=== PATIENT | female | born 1985 | race Caucasian/White ===

== ENCOUNTER → 2016-07-12 | Outpatient (CLI) | payer MEDICAID ==
--- NOTE | 2016-07-12 16:11 | Diagnostic Imaging Report ---
INDICATION: survey. COMPARISON: None. DISCUSSION: Transabdominal sonographic evaluation of the gravid uterus was performed. Single live intrauterine at 20 weeks 3 days by sonographic measurements. EDC is 11/26/2016. presentation is transverse. Normal amniotic fluid index. Grade 1 placenta is located posteriorly with no placenta previa. heart rate measures 136 beats per minute. gender is female. Good visualization of the kidneys, bladder, stomach, brain, four-chamber heart, three-vessel cord and insertion, spine, and extremities. The estimated weight is 374 g. Biparietal diameter measures 4.5 cm. Head circumference measures 17 cm. The abdominal circumference measures 16 cm. Femur length measures 3.4 cm. IMPRESSION: 1. Single live intrauterine at 20 weeks 3 days by sonographic measurements. Normal anatomical survey. Dictated by: Dictated on workstation # [id number]
== END ==
LOC: RAD 13:14
PROVIDERS: ATTEND Obstetrics & Gynecology
DX: Z34.82 Encounter for supervision of other normal pregnancy, second trimester (principal)
CPT/HCPCS: 76816

== ENCOUNTER 2016-11-15 08:36 | Outpatient (CLI) | payer MEDICAID ==
[~2016-11-15] VITALS: Ht 152.4 cm; Wt 67.6 kg
[2016-11-15] MEDS ORDERED: FAMO20TA5 PO (08:45)
[2016-11-15] MEDS ORDERED: PREN-37 PO (08:45)
[2016-11-15 08:53] VITALS: BP 105/65
== END 2016-11-15 09:00 | disposition home or self-care (01) ==
LOC: PREOP 08:36
PROVIDERS: ATTEND Obstetrics & Gynecology
DX: Z01.818 Encounter for other preprocedural examination (principal); O34.219 Maternal care for unspecified type scar from previous cesarean delivery; Z3A.00 Weeks of gestation of pregnancy not specified
CPT/HCPCS: 87081

== ENCOUNTER 2016-11-22 04:58 | Inpatient (IN) | payer MEDICAID ==
[~2016-11-22] VITALS: Ht 152.4 cm; Wt 69.2 kg
[2016-11-22] VITALS (10 sets, daily range): BP systolic 79–122; BP diastolic 47–77
[~2016-11-22 04:58] MED LIST: FAMO20TA5 PO; PREN-37 PO
[2016-11-22] MEDS ORDERED: NS (IVPB) 50 ML ONE (05:05)
[2016-11-22] MEDS ORDERED: LACTATED RINGERS 1,000 ML IV ONE ×2 (05:05→09:04)
[2016-11-22] MEDS ORDERED: ceFAZolin 1,000 MG (ANCEF) VIAL ONE (05:05)
[2016-11-22] MEDS ORDERED: METOCLOPRAMIDE INJ 10 MG/2 ML (REGLAN) ONE (05:33)
[2016-11-22] MEDS ORDERED: FAMOTIDINE 20MG/2ML IV (PEPCID) ONE (05:34)
[2016-11-22] MEDS ORDERED: CITRIC ACID/SOB CIT (BICITRA) 30 ML UDC ONE (05:34)
--- OUTSIDE RECORDS SUMMARY | 2016-11-22 05:50 | XMS REPORT ---
Author Author [facility] Medical Staff Organization [facility] Address [address] [place] [address] Phone [phone] Care Team Providers Care Copy Worker Name Role Phone SANDY MONROY MD PP [phone] Summary purpose TRANSITION OF CARE AUTO GENERATION Chief Complaint and Reason for Visit No authorized Reason for Visit (Admitting Diagnosis) is available for this visit. Problem list No authorized problems tracked for continuity of care are available for this visit. Encounters No authorized problems tracked for encounter diagnoses are available for this visit. Medications No medications recorded for this patient visit Allergies, adverse reactions, alerts Allergen Category Ingredient Status Reaction Severity Onset No known food allergies No known food allergies No known food allergies Confirmed or Verified Codeine Drug Allergy Codeine Confirmed but Inactive Latex Drug Allergy Latex Confirmed but Inactive Latex Environmental Allergy LATEX Confirmed but Inactive Penicillins Drug Allergy Penicillins Confirmed but Inactive Immunizations No immunizations recorded for this patient visit Relevant diagnostic tests and/or laboratory data No authorized results are available for this patient visit History of procedures Procedure Code Code Type Description Date Performed Performing Physician 17163 CPT-4 EMERGENCY DEPT VISIT 09-09-2015 KADIE DUMONT 98271 CPT-4 EMERGENCY DEPT VISIT 09-09-2015 KADIE DUMONT Functional status Functional Status Finding Observation Time Abdomen Appearance flat :35 Abdomen soft :35 Carroll no :35 Urination normal :35 Quality sym/unlabored :35 Cough absent :35 Secretions no :35 Airway natural :35 Chest Tube no :35 Oxygen no :55 Temp >100.4 no :55 Temp <96.8 no :55 Chills with rigors no :55 HR > 90bpm no :55 Respirations > 20 no :55 Systolic <90 no :55 headache stiff neck no :55 Nursing Note DC inst given to pt with Rx for Ultravate. Verb understanding of inst and pt amb off unit in stable condition. :55 Vital signs Type Value Date Respiration Rate 18breaths per minute :55 Pulse 75beats per minute :55 Oxygen Saturation 99% :55 BP Systolic 95mmHg :55 BP Diastolic 62mmHg :55 Temperature 98.6F :55 Height 60inches :50 Weight 115.0LB :50 Social history Type Value Smoking Status CURRENT EVERY DAY SMOKER Treatment Plan No treatment plan text is available for this visit. Hospital discharge instructions Dismissal Condition good Disposition on DC home DC Inst/Educ Give yes Med/Side Effects Rev yes Flu Vac No Tetanus Vac 12-08-08
--- OUTSIDE RECORDS SUMMARY | 2016-11-22 05:50 | XMS REPORT ---
Author Author [facility] Medical Staff Organization [facility] Address [address] [place], [place] [id number] Phone [phone] Care Team Providers Care Automotive Internet Sales Manager Name Role Phone SANDY MONROY MD PP [phone] Summary purpose TRANSITION OF CARE AUTO GENERATION [...] for this patient visit History of procedures No procedures recorded for this patient visit. Functional status Functional Status Finding Observation Time [...]
[2016-11-22] MEDS ORDERED: FAMOTIDINE 20MG/2ML IV (PEPCID) IV ONE (06:00)
[2016-11-22] MEDS ORDERED: CITRIC ACID/SOB CIT (BICITRA) 30 ML UDC PO ONE (06:00)
[2016-11-22] MEDS ORDERED: METOCLOPRAMIDE INJ 10 MG/2 ML (REGLAN) IV ONE (06:00)
[2016-11-22] MEDS ORDERED: OXYTOCIN/NORMAL SALINE 1,000 ML IV ONE (06:30)
[2016-11-22] MEDS ORDERED: ceFAZolin INJECTION 1,000 MG in NS (IVPB) 50 ML IV SCH (06:30)
[2016-11-22] MEDS: LACTATED RINGERS 1,000 ML IV PRN ×2 (06:34→07:19)
[2016-11-22 06:41] LABS: BASOPHILS # (AUTO) 0.1 10^3/uL (0.0-0.1); BASOPHILS % (AUTO) 0 % (0-10); EOSINOPHILS # (AUTO) 0.4 10^3/uL (0.0-0.3); EOSINOPHILS % (AUTO) 2 % (0-10); LYMPHOCYTES # (AUTO) 3.1 X 10^3 (1.0-4.0); LYMPHOCYTES % (AUTO) 18 % (12-44); MEAN CORPUSCULAR HEMOGLOBIN 29 PG (25-34); MEAN CORPUSCULAR HGB CONC 33 G/DL (32-36); MEAN CORPUSCULAR VOLUME 89 FL (80-99); MEAN PLATELET VOLUME 9.5 FL (7.4-10.4); MONOCYTES # (AUTO) 1.6 X 10^3 (0.0-1.0); MONOCYTES % (AUTO) 10 % (0-12); NEUTROPHILS # (AUTO) 11.8 X 10^3 (1.8-7.8); NEUTROPHILS % (AUTO) 70 % (42-75); PLATELET COUNT 387 10^3/uL (130-400); RED CELL DISTRIBUTION WIDTH 14.6 % (10.0-14.5); WHITE BLOOD COUNT 16.9 10^3/uL (4.3-11.0)
[2016-11-22] MEDS ORDERED: fentaNYL INJECTION 100 MCG/2 ML AMP ONE (06:54)
[2016-11-22] MEDS ORDERED: morphine PF (DURAMORPH) 10 MG/10 ML AMP ONE (06:54)
--- NOTE | 2016-11-22 07:20 | History & Physical-OB ---
OB - Chief Complaint & HPI Date/Time Date of Admission: Date of Admission: Nov 22, 2016 at 05:46 Time Seen by Provider: 07:10 Chief Complaint/History OB-Reason for Admission/Chief: Section Hx : 4 Hx Para: 2 Expected Date of Delivery: Nov 28, 2016 Gestational Age in Weeks: 39 Gestational Age in Days: 1 Indication for : desires repeat Admission Nurse Assessment Rev: Yes History of Labs O pos Antibody neg RI RPR NR HBsAg NR HIV NR GC neg GBS neg Allergies and Home Medications Allergies Coded Allergies: No Known Drug Allergies (Unverified , 11/22/16) Home Medications Famotidine 20 Mg Tablet, 20 MG PO DAILY PRN for HEARTBURN, (Reported) Vit/Iron Fumarate/FA 1 Each Tablet, 1 EACH PO DAILY, (Reported) OB - History Hx of Present Care: Yes Ultrasounds: Normal mid trimester US Obstetrical Complications: None Medical Complications: None Patient Past Medical History n/a Social History/Family History Recent Infectious Disease Expo: No Alcohol Use: Denies Use Recreational Drug Use: No OB - Admission Exam Physical Exam Date Seen by Provider: Nov 22, 2016 Time Seen by Provider: 07:10 Vitals: Vital Signs 11/22/16 06:35 Temp 97.7 Pulse 87 Resp 18 B/P (MAP) 122/77 HEENT: NCAT Heart: Rhythm Normal Lungs: Clear Abdomen: Gravid Extremities: Normal Reflexes: Normal Membranes: Intact Heart Rate: 130's Accelerations: Accelerations Present Decelerations: No Decelerations Short Term Variability: Present Residential Variability: Average (6-25) Contractions on Admission: 6-10 Minutes Apart Intensity: Mild Labs Laboratory Tests Test 11/22/16 06:22 Range/Units White Blood Count 16.9 H 4.3-11.0 10^3/uL Red Blood Count 4.10 L 4.35-5.85 10^6/uL Hemoglobin 11.9 11.5-16.0 G/DL Hematocrit 36 35-52 % Mean Corpuscular Volume 89 80-99 FL Mean Corpuscular Hemoglobin 29 25-34 PG Mean Corpuscular Hemoglobin Concent 33 32-36 G/DL Red Cell Distribution Width 14.6 H 10.0-14.5 % Platelet Count 387 130-400 10^3/uL Mean Platelet Volume 9.5 7.4-10.4 FL Neutrophils (%) (Auto) 70 42-75 % Lymphocytes (%) (Auto) 18 12-44 % Monocytes (%) (Auto) 10 0-12 % Eosinophils (%) (Auto) 2 0-10 % Basophils (%) (Auto) 0 0-10 % Neutrophils # (Auto) 11.8 H 1.8-7.8 X 10^3 Lymphocytes # (Auto) 3.1 1.0-4.0 X 10^3 Monocytes # (Auto) 1.6 H 0.0-1.0 X 10^3 Eosinophils # (Auto) 0.4 H 0.0-0.3 10^3/uL Basophils # (Auto) 0.1 0.0-0.1 10^3/uL OB - Assessment/Plan/Diagnosis Assessment Assessment: section Plan Plan: Section Discharge Diagnosis Diagnosis: 31 yo @ 39.1 Previous GBS neg TERRY SAXENA DO Nov 22, 2016 07:20
[2016-11-22] MEDS ORDERED: OXYTOCIN/NORMAL SALINE 500 ML IV SCH (07:25)
[2016-11-22] MEDS ORDERED: HYDROmorphone (DILAUDID) 2 MG/ML VIAL IVP PRN (07:30)
[2016-11-22] MEDS ORDERED: TETANUS,DIPTH,PERTUSS P/F (BOOSTRIX) 0.5 ML VIAL IM SCH (07:30)
[2016-11-22] MEDS ORDERED: ONDANSETRON 4 MG/2 ML (SDV) Z0FRAN IVP PRN (07:30)
[2016-11-22] MEDS ORDERED: MEASLES,MUMPS,RUBELLA 1 EA INJ SC SCH (07:30)
[2016-11-22] MEDS ORDERED: PHENYLEPHRINE 100 MCG/ML 10 ML (ANESTHESIA) SYR ONE (07:51)
[2016-11-22] MEDS ORDERED: GLYCOPYRROLATE 0.2 MG/ML (ROBINUL) 2 ML VIAL ONE (07:51)
[2016-11-22] MEDS ORDERED: fentaNYL INJECTION 100 MCG/2 ML AMP INJ ONE (08:45)
[2016-11-22] MEDS ORDERED: morphine PF (DURAMORPH) 10 MG/10 ML AMP INJ ONE (08:45)
[2016-11-22] MEDS ORDERED: NALOXONE 0.4 MG/ML 1 ML (NARCAN) VIAL IV PRN (08:45)
[2016-11-22] MEDS ORDERED: ONDANSETRON 4 MG/2 ML (SDV) Z0FRAN IV PRN (08:45)
--- NOTE | 2016-11-22 09:02 | Progress Note-Post Operative ---
Post-Operative Progess Note Surgeon (s)/Veterinary Physiologist (s) Surgeon TERRY SAXENA DO Veterinary Physiologist: Leslie Mock Pre-Operative Diagnosis Previous x 2 Post-Operative Diagnosis same Procedure & Operative Findings Date of Procedure 11/22/16 Procedure Performed/Findings Fluid: 1800 EBL 800 Urine: 150 mL clear Findings: Live female weight 8lbs 12 oz, APGARs 4/8 OPERATIVE REPORT IN DETAIL: Once in the operating room, spinal anesthesia was found to be adequate. She was placed in the supine position with a leftward tilt, prepped and draped in normal sterile fashion. A timeout is performed and anesthesia is tested. I then proceed with making a Pfannenstiel skin incision to the previously existing scar using a knife and carried down to the underlying fascia using Bovie cautery. The fascial incision is extended laterally using Bovie cautery. The superior aspect of the fascial incision was then grasped with Hayden clamps, tented upward and dissected off the underlying rectus muscles. During this dissection there is severe scarring of the rectus muscle to the fascia, it is difficult to separate the two layers as the muscle layer is nearly obliterated. Inferior aspect of the fascial incision was then grasped with Hayden clamps, tented upward and dissected off the underlying rectus muscles as best as I can. The rectus muscles were then dissected down the midline using Sagastume scissors, which exposed the peritoneum and allows me to enter bluntly. I then extend the peritoneal incision using blunt traction, placing Bashir ring retractor in the peritoneal incision which offers excellent lateral sidewall retraction. I then identified the lower uterine segment which was found to be thinned out and make an incision into the vesicouterine peritoneum and bluntly dissected a bladder flap off of the lower uterine segment. I then proceed with my myotomy until membranes are visualized. At which point, I extend the uterine incision laterally and superiorly using bandage scissors. I then performed amniotomy using an Allis clamp. Clear fluid was noted. The infant is found in vertex presentation. With gentle fundal pressure, the infant's head is elevated and delivered through the incision and then the nares and oropharynx are then bulb suctioned. The anterior and posterior shoulders are delivered. The infant is then brought out into the operative field where the cord was doubly clamped and cut. Infant was handed off to the awaiting nurses in attendance. Cord blood was collected and 3-vessel cord with intact placenta is delivered spontaneously thereafter. IV Pitocin is initiated to facilitate uterine contraction. Uterine fundus became firmer with bimanual massage. The uterus was then exteriorized and cleared of all endometrial clots and debris. I then closed the uterine incision using 0 Vicryl suture in running locking fashion. A 2nd layer of imbricating 0 Monocryl was placed. Excellent hemostasis was noted after doing so. I then placed the uterus back within the pelvis and copiously irrigated the pelvis using normal saline. There was no active bleeding noted from any of my dissection planes. I placed Interceed antiadhesive over my lower transverse incision and proceeded with closing the peritoneum using 3-0 Vicryl in running fashion. The rectus muscle was reapproximated using 3-0 Vicryl sutures in interrupted fashion. The fascia was reapproximated using 0 Vicryl fashion. The subcutaneous tissues reapproximated using 3-0 plain in an interrupted fashion and the skin was reapproximated using 4-0 Monocryl in a running subcuticular. Dermabond was applied to the incision. A sterile dressing is adhesive white tape. The patient tolerated the procedure well and was sent to the recovery area in stable condition. Lap and sponge counts correct at the end of the procedure. Instrument counts were correct as well. One gram of Ancef was given preoperatively for infection prophylaxis. Anesthesia Type spinal Estimated Blood Loss Estimated blood loss (mL): 800 Specimens/Packing Specimens Removed placenta TERRY SAXENA DO Nov 22, 2016 9:02 am
[2016-11-22] MEDS ORDERED: IBUP-1773 PO (09:09)
[2016-11-22] MEDS ORDERED: DOCU100C37 PO (09:09)
[2016-11-22] MEDS ORDERED: HYDR-3812 PO (09:09)
--- NOTE | 2016-11-22 09:10 | Discharge Inst-Women's Service ---
Discharge Inst-Women's Serv Depart Medication/Instructions New, Converted or Re-Newed RX: RX on Chart Consults/Follow Up Additional Follow Up: Yes Orders/Referrals Dr. Clifton in 7-10 days and in 6 weeks Activity Activity: Activity as Tolerated Driving Instructions: No Driving for 1 Week NO SMOKING: NO SMOKING Nothing Inside Vagina: No Douching, No [place], No Tampons Diet Discharge Diet: No Restrictions Symptoms to Report to : Bleeding Excessive, Pain Increased, Fever Over 101 Degrees F, Vaginal Bleeding Increase, Questions/Concerns For Any Problems or Questions: Contact Your Physician Skin/Wound Care Infection Signs and Symptoms: Increased Redness, Foul Odor of Wound, Increased Drainage, Skin Itchy or Has a Rash, Increased Swelling, Temperature Above 101 F Operative Area Clean and Dry: Keep Incision Clean/Dry Stitches/Renetta/Dermabond: Dermabond, Care of Stitches Bathing Instructions: TERRY Polk DO Nov 22, 2016 9:10 am
[2016-11-22] MEDS: HYDROcodone/APAP 5 MG/325 MG (LORTAB) TAB PO PRN ×3 (10:11→20:03)
[2016-11-22] MEDS ORDERED: D5 LR IV SOLUTION 1,000 ML IV ONE (14:00)
[2016-11-22] MEDS: KETOROLAC 30 MG/ML VIAL IVP SCH ×3 (14:55→20:45)
[2016-11-22] MEDS: CATHETER FLUSH 10 ML SYR IV SCH ×2 (16:11→16:12)
[2016-11-22] MEDS: DOCUSATE SODIUM 100 MG (COLACE) CAP PO SCH ×2 (16:12→20:45)
[2016-11-23 00:23] VITALS: BP 79/48
[2016-11-23] MEDS: IBUPROFEN 600 MG (MOTRIN) TAB PO SCH ×3 (04:55→18:56)
[2016-11-23 05:00] VITALS: BP 92/50
[2016-11-23 06:40] LABS: BASOPHILS % (AUTO) 0 % (0-10); EOSINOPHILS # (AUTO) 0.2 10^3/uL (0.0-0.3); EOSINOPHILS % (AUTO) 2 % (0-10); LYMPHOCYTES # (AUTO) 1.9 X 10^3 (1.0-4.0); LYMPHOCYTES % (AUTO) 13 % (12-44); MEAN CORPUSCULAR HEMOGLOBIN 29 PG (25-34); MEAN CORPUSCULAR HGB CONC 33 G/DL (32-36); MEAN CORPUSCULAR VOLUME 89 FL (80-99); MEAN PLATELET VOLUME 9.3 FL (7.4-10.4); MONOCYTES # (AUTO) 1.7 X 10^3 (0.0-1.0); MONOCYTES % (AUTO) 12 % (0-12); NEUTROPHILS # (AUTO) 10.1 X 10^3 (1.8-7.8); NEUTROPHILS % (AUTO) 73 % (42-75); PLATELET COUNT 336 10^3/uL (130-400); RED BLOOD COUNT 3.31 10^6/uL (4.35-5.85); RED CELL DISTRIBUTION WIDTH 14.1 % (10.0-14.5); WHITE BLOOD COUNT 13.9 10^3/uL (4.3-11.0)
[2016-11-23] MEDS: CATHETER FLUSH 10 ML SYR IV SCH ×3 (08:05→08:06)
[2016-11-23 08:51] VITALS: BP 86/51
[2016-11-23] MEDS: DOCUSATE SODIUM 100 MG (COLACE) CAP PO SCH (08:52)
[2016-11-23] MEDS: HYDROcodone/APAP 5 MG/325 MG (LORTAB) TAB PO PRN ×3 (09:09→18:54)
--- NOTE | 2016-11-23 11:37 | Progress Note-Standard ---
Standard Progress Note Progress Notes/Assess & Plan Date Seen by Provider: Nov 23, 2016 Time Seen by Provider: 11:00 Progress/Assessment & Plan Patient doing well no concerns voiced. Lochia light, pain well controlled. Ambulating and voiding freely. Vital Sign - Last 24 Hours 11/22/16 11/22/16 11/22/16 11/22/16 12:00 13:30 16:00 17:50 Temp 96.0 96.2 96.4 Pulse 89 88 73 63 Resp 16 16 18 B/P (MAP) 100/60 102/58 90/53 79/47 Pulse Ox 98 98 98 O2 Delivery Room Air Room Air Room Air 11/22/16 11/22/16 11/23/16 11/23/16 17:55 20:50 00:23 05:00 Temp 97.4 97.1 96.5 Pulse 59 56 58 75 Resp 18 18 18 B/P (MAP) 87/47 88/56 79/48 92/50 Pulse Ox 100 98 O2 Delivery Room Air Room Air Room Air 11/23/16 08:51 Temp 96.9 Pulse 71 Resp 14 B/P (MAP) 86/51 Pulse Ox 99 O2 Delivery Room Air Incision: c/d/i Laboratory Tests Test 11/23/16 06:28 Range/Units White Blood Count 13.9 H 4.3-11.0 10^3/uL Red Blood Count 3.31 L 4.35-5.85 10^6/uL Hemoglobin 9.6 L 11.5-16.0 G/DL Hematocrit 30 L 35-52 % Mean Corpuscular Volume 89 80-99 FL Mean Corpuscular Hemoglobin 29 25-34 PG Mean Corpuscular Hemoglobin Concent 33 32-36 G/DL Red Cell Distribution Width 14.1 10.0-14.5 % Platelet Count 336 130-400 10^3/uL Mean Platelet Volume 9.3 7.4-10.4 FL Neutrophils (%) (Auto) 73 42-75 % Lymphocytes (%) (Auto) 13 12-44 % Monocytes (%) (Auto) 12 0-12 % Eosinophils (%) (Auto) 2 0-10 % Basophils (%) (Auto) 0 0-10 % Neutrophils # (Auto) 10.1 H 1.8-7.8 X 10^3 Lymphocytes # (Auto) 1.9 1.0-4.0 X 10^3 Monocytes # (Auto) 1.7 H 0.0-1.0 X 10^3 Eosinophils # (Auto) 0.2 0.0-0.3 10^3/uL Basophils # (Auto) 0.0 0.0-0.1 10^3/uL Diagnosis: POD 1 RLTCS Acute blood loss anemia P: Replace Iron PO/PP precautions reviewed Encourage ambulation Anticipate dc tomorrow TERRY SAXENA DO Nov 23, 2016 11:37 am
[2016-11-23 12:57] VITALS: BP 97/48
--- NOTE | 2016-11-23 14:56 | Anesthesia-Regional Post-Op ---
Regional Patient Condition Mental Status: Alert, Oriented x3 Circulation: Same as Pre-Op Headache: Absent Sensation: Full Recovery Motor Block: Absent Post Op Complications Complications None Follow Up Care/Instructions Patient Instructions None needed. Anesthesia/Patient Condition Patient is doing well, no complaints, stable vital signs, no apparent adverse anesthesia problems. ASHWINI VEGA DO Nov 23, 2016 14:56
[2016-11-23 19:50] VITALS: BP 86/49
[2016-11-24 02:00] VITALS: BP 88/51
[2016-11-24] MEDS: IBUPROFEN 600 MG (MOTRIN) TAB PO SCH ×2 (02:08→08:36)
[2016-11-24] MEDS: DOCUSATE SODIUM 100 MG (COLACE) CAP PO SCH ×2 (02:08→08:36)
[2016-11-24] MEDS: HYDROcodone/APAP 5 MG/325 MG (LORTAB) TAB PO PRN ×2 (06:02→12:29)
[2016-11-24 08:40] VITALS: BP 97/55
--- NOTE | 2016-11-24 09:02 | Progress Note-Standard ---
Standard Progress Note Progress Notes/Assess & Plan Date Seen by Provider: Nov 24, 2016 Time Seen by Provider: 09:02 Progress/Assessment & Plan patient is without complaint. She is ambulating, voiding, tolerating by mouth well, has good pain control. Patient is requesting discharge home. Vital Signs Date Time Temp Pulse Resp B/P (MAP) Pulse Ox O2 Delivery O2 Flow Rate FiO2 11/24/16 08:40 97.8 80 18 97/55 99 11/24/16 02:00 98.5 81 18 88/51 99 11/23/16 19:50 98.1 62 18 86/49 99 11/23/16 12:57 98.7 71 16 97/48 100 Room Air vital signs are stable. Patient is afebrile. Abdomen is benign. Extremities show no clubbing cyanosis. There is no Homans sign. Assessment and plan postoperative day number 2 status post repeat doing well. patient is discharged home with follow-up in clinic Final Diagnosis repeat delivery STEFANIA HAGAN MD Nov 24, 2016 9:02 am
== END 2016-11-24 13:01 | disposition home or self-care (01) | DRG 766 ==
LOC: LDRP 05:46 → WS 09:25
PROVIDERS: ADMIT Obstetrics & Gynecology; ATTEND Obstetrics & Gynecology
PROC: 10D00Z1 Extraction of Products of Conception, Low, Open Approach (ICD-10-PCS; principal; 2016-11-22 07:19)
DX: O34.211 Maternal care for low transverse scar from previous cesarean delivery (principal); Z37.0 Single live birth; Z3A.39 39 weeks gestation of pregnancy
CPT/HCPCS: 36415; 85025; 86850; 86900; 86901; 94664

== ENCOUNTER 2020-05-18 11:48 | Emergency (ER) | payer MEDICAID, OTHER ==
[~2020-05-18] VITALS: Ht 152 cm; Wt 58.9 kg
[~2020-05-18 11:48] MED LIST changes: +ACHD5005 PO; +DOCU100C37 PO; +IBUP-1773 PO
--- NOTE | 2020-05-18 12:11 | ED Back Pain ---
General Stated Complaint: LOWER BACK PAIN Source of Information: Patient Exam Limitations: No Limitations History of Present Illness Date Seen by Provider: May 18, 2020 Time Seen by Provider: 12:11 Initial Comments This is a healthy 34 yo female who presented via POV for low back pain. State she was attempting to put on a patients prosthetic leg and injured her lower back. Reports immediate severe pain in ther left lower back. Rates 7/10, sharp, and localized to left lower back. Reported some numbness in her left upper thigh initially, however notes this is improving. Pain is worse with ambulation and improved with rest. Took Ibuprofen and Tylenol prior to arrival. No other injuries reported. No recent illness. Denies fever, chills, loss of sensation in groin, or bowel/bladder changes. Timing/Duration: 1/2 Hour Severity: Moderate Pain/Injury Location: Back Modifying Factors: Worse With Movement; Improves With Rest Associated Symptoms: numbness in legs/feet (see HPI) Allergies and Home Medications Allergies Coded Allergies: No Known Drug Allergies (Unverified , 11/22/16) Home Medications Cyclobenzaprine HCl 10 Mg Tablet, 10 MG PO Q8H PRN for SPASMS Prescribed by: ANTONIO JEROME on 05/18/20 1247 Docusate Sodium 100 Mg Capsule, 100 MG PO BID PRN for CONSTIPATION-1ST LINE Prescribed by: TERRY SAXENA on 11/22/16 09 Famotidine 20 Mg Tablet, 20 MG PO DAILY PRN for HEARTBURN, (Reported) Hydrocodone Bit/Acetaminophen 1 Each Tablet, 1-2 TAB PO Q4H PRN for PAIN- MODERATE Prescribed by: TERRY SAXENA on 11/22/16 09 Ibuprofen 600 Mg Tablet, 600 MG PO Q6H Prescribed by: TERRY SAXENA on 11/22/16 0909 Vit/Iron Fumarate/FA 1 Each Tablet, 1 EACH PO DAILY, (Reported) Patient Home Medication List Home Medication List Reviewed: Yes Review of Systems Constitutional: no symptoms reported EENTM: no symptoms reported Respiratory: no symptoms reported Cardiovascular: no symptoms reported Gastrointestinal: no symptoms reported Genitourinary: no symptoms reported : No Musculoskeletal: see HPI Skin: no symptoms reported Psychiatric/Neurological: No Symptoms Reported Past [id number]-[id number] Hx Patient Social History Former Smoker, Quit: Apr 01, 2016 Recent Hopitalizations: No Seasonal Allergies Seasonal Allergies: Yes Past Medical History Surgeries: Yes (c/s x2, D&C x2, wisdom teeth) Respiratory: No Cardiac: No Neurological: No Genitourinary: No Gastrointestinal: No Musculoskeletal: No Endocrine: No HEENT: No (glasses) Cancer: No Psychosocial: No Integumentary: No Blood Disorders: No Family Medical History Alcoholism 19 FATHER Hypertension 19 FATHER Respiratory disorder 19 MOTHER Seizure disorder 19 FATHER Physical Exam Vital Signs Vital Signs - First Documented 05/18/20 12:22 Temp 36.0 Pulse 70 Resp 18 B/P (MAP) 112/79 (90) Pulse Ox 98 Capillary Refill : Height, Weight, BMI Height: 5'0.00" Weight: 152lbs. 8.0oz. 69.010923wr; 29.8 BMI Method: General Appearance: No Apparent Distress, WD/WN HEENT: PERRL/EOMI, Normal ENT Inspection Neck: Full Range of Motion, Normal Inspection, Non Tender, Supple Cardiovascular: Regular Rate, Rhythm, No Edema, No Murmur, Normal Peripheral Pulses Respiratory: Lungs Clear, Normal Breath Sounds Gastrointestinal: Normal Bowel Sounds, Non Tender, Soft Back: Normal Inspection, No Vertebral Tenderness, Other (Tenderness over left SI joint with light and deep palpation. ) Extremity: Normal Capillary Refill, Normal Inspection, Normal Range of Motion Neurologic/Psychiatric: Alert, Oriented x3, No Motor/Sensory Deficits, Abnormal Gait (guarded); No Motor Weakness, No Sensory Deficit Skin: Normal Color Progress/Results/Core Measures Results/Orders Lab Results Laboratory Tests Test 05/18/20 12:19 Range/Units Urine Color YELLOW Urine Clarity CLEAR Urine pH 8.0 5-9 Urine Specific [place] 1.010 L 1.016-1.022 Urine Protein NEGATIVE NEGATIVE Urine Glucose (UA) NEGATIVE NEGATIVE Urine Ketones NEGATIVE NEGATIVE Urine Nitrite NEGATIVE NEGATIVE Urine Bilirubin NEGATIVE NEGATIVE Urine Urobilinogen 0.2 < = 1.0 MG/DL Urine Leukocyte Esterase NEGATIVE NEGATIVE Urine RBC (Auto) NEGATIVE NEGATIVE Urine RBC NONE /HPF Urine WBC RARE /HPF Urine Squamous Epithelial Cells 2-5 /HPF Urine Crystals NONE /LPF Urine Bacteria NEGATIVE /HPF Urine Casts NONE /LPF Urine Mucus NEGATIVE /LPF Urine Culture Indicated NO Urine Test NEGATIVE NEGATIVE Urine Opiates Screen NEGATIVE NEGATIVE Urine Oxycodone Screen NEGATIVE NEGATIVE Urine Methadone Screen NEGATIVE NEGATIVE Urine Propoxyphene Screen NEGATIVE NEGATIVE Urine Barbiturates Screen NEGATIVE NEGATIVE Ur Tricyclic Antidepressants Screen NEGATIVE NEGATIVE Urine Phencyclidine Screen NEGATIVE NEGATIVE Urine Amphetamines Screen NEGATIVE NEGATIVE Urine Methamphetamines Screen NEGATIVE NEGATIVE Urine Benzodiazepines Screen NEGATIVE NEGATIVE Urine Cocaine Screen NEGATIVE NEGATIVE Urine Cannabinoids Screen NEGATIVE NEGATIVE My Orders Orders - ANTONIO JEROME TEACHING MANAGER Ua Culture If Indicated (05/18/20 11:54) Urine Bedside (05/18/20 11:54) Hcg,Qualitative Urine (05/18/20 12:21) Drug Screen Stat (Urine) (05/18/20 13:06) Vital Signs/I&O 05/18/20 05/18/20 12:22 13:09 Temp 36.0 36.0 Pulse 70 65 Resp 18 18 B/P (MAP) 112/79 (90) 115/72 (90) Pulse Ox 98 98 Progress Progress Note : Progress Note Pt. examined and in no acute distress. Notes that symptoms are improving upon arrival. Pain is likely from straining lower back while applying prosthetic device, no images ordered today. As she taken both Tylenol and Ibuprofen and she drove independently, no additional pharmacologic pain relief ordered. Provided with ice pack. Will send home with Rx for Flexeril. Reviewed discharge plan with her and she is agreeable with plan. Departure Impression Primary Impression: Strain of sacroiliac region Disposition: HOME, SELF-CARE Condition: Stable/Unchanged Departure-Patient Inst. Decision time for Depature: 12:23 Referrals: NO,LOCAL PHYSICIAN (PCP/Family) Primary Care Physician Patient Instructions: Back Muscle Strain (DC) Add. Discharge Instructions: Plan: 1. Discharge home. 2. Rest, ice 20 minutes at a time every couple of hours for swelling and pain, over the next 3 days. Avoid twisting, pulling, bending, and lifting. 3. May take Tylenol or Ibuprofen as needed for pain per package directions. Do not take more than directed. Use Flexeril as directed for breakthrough pain every 8 hours. 4. Follow up with your primary care provider if symptoms persist. 5. Return for any new or concerning symptoms. Scripts Cyclobenzaprine HCl (Cyclobenzaprine HCl) 10 Mg Tablet 10 MG PO Q8H PRN for SPASMS, #15 TAB 0 Refills Prov: ANTONIO JEROME TEACHING MANAGER 05/18/20 Work/School Note: Work Release Form Date Seen in the Emergency Department: May 18, 2020 Return to Work: May 22, 2020 Restrictions: No Restrictions ANTONIO JEROME APRN May 18, 2020 12:11
[2020-05-18 12:22] LABS: BILIRUBIN,URINE NEGATIVE (NEGATIVE); CLARITY,URINE CLEAR; COLOR,URINE YELLOW; GLUCOSE, URINE (UA) NEGATIVE (NEGATIVE); KETONES,URINE NEGATIVE (NEGATIVE); LEUKOCYTE ESTERASE ,URINE NEGATIVE (NEGATIVE); NITRITE,URINE NEGATIVE (NEGATIVE); PROTEIN,URINE NEGATIVE (NEGATIVE)
[2020-05-18 12:29] LABS: BACTERIA,URINE NEGATIVE /HPF; WBC,URINE RARE /HPF
[2020-05-18] MEDS ORDERED: CYCL10TA9 PO (12:47)
[2020-05-18 13:09] VITALS: BP 115/72
[2020-05-18 13:12] LABS: AMPHETAMINE SCREEN, URINE NEGATIVE (NEGATIVE); BARBITURATE SCREEN URINE NEGATIVE (NEGATIVE); BENZODIAZEPINES SCREEN URINE NEGATIVE (NEGATIVE); CANNABINOID SCREEN, URINE NEGATIVE (NEGATIVE); COCAINE SCREEN URINE NEGATIVE (NEGATIVE); METHADONE STAT NEGATIVE (NEGATIVE); METHAMPHETAMINE SCREEN URINE S NEGATIVE (NEGATIVE); OPIATE SCREEN URINE NEGATIVE (NEGATIVE); OXYCODONE STAT NEGATIVE (NEGATIVE); PROPOXYPHENE STAT NEGATIVE (NEGATIVE); TRICYCLIC ANTIDEPRESSANTS SCRE NEGATIVE (NEGATIVE)
== END 2020-05-18 13:09 | disposition home or self-care (01) ==
LOC: EDUNIT# 11:48 → ER 11:50
DX: S33.6XXA Sprain of sacroiliac joint, initial encounter (principal); Z87.891 Personal history of nicotine dependence; Z82.49 Family history of ischemic heart disease and other diseases of the circulatory system; X58.XXXA Exposure to other specified factors, initial encounter
CPT/HCPCS: 80306; 81000; 84703; 99282

== ENCOUNTER → 2021-01-09 | Outpatient (CLI) | payer BC, OTHER ==
[~2021-01-09] MED LIST changes: +CYCL10TA9 PO
--- NOTE | 2021-01-09 15:10 | Diagnostic Imaging Report ---
PROCEDURE: CT abdomen and pelvis without contrast. TECHNIQUE: Multiple contiguous axial images were obtained through the abdomen and pelvis without the use of intravenous contrast. Auto Exposure Controls were utilized during the CT exam to meet ALARA standards for radiation dose reduction. INDICATION: Left lower quadrant pain. No prior studies are available for comparison. The lung bases are clear. The liver and gallbladder are unremarkable. There is no biliary ductal dilatation. Pancreas and spleen are unremarkable. No adrenal mass is detected. Kidneys are unremarkable. No calculi are seen. There is no hydronephrosis. Aorta is nonaneurysmal. Small and large bowel loops are normal caliber. There is a midline mass which contains fluid density as well as fat density and calcification. This is anterior to the uterus and measures approximately 6 cm AP by 7.4 cm transverse. This most likely represents a dermoid. Uterus contains an IUD and appears to be deviated to the left. The bladder is decompressed. No free fluid is seen. Bony structures are unremarkable. IMPRESSION: There is a midline mass containing fluid density as well as fat density and calcifications suggestive of a dermoid. No other significant abnormality is detected. Dictated by: Dictated on workstation # [id number]
== END ==
LOC: RAD 13:15
PROVIDERS: ATTEND Nurse Practitioner Family
DX: R10.32 Left lower quadrant pain (principal)
CPT/HCPCS: 74176

== ENCOUNTER 2021-02-27 05:36 | Outpatient (CLI) | payer OTHER ==
[~2021-02-27] VITALS: Ht 152.4 cm; Wt 61.3 kg
[~2021-02-27 05:36] MED LIST changes: +CYCL10TA25 PO; -CYCL10TA9 PO
[2021-02-28] MEDS ORDERED: birth control (08:36)
== END 2021-02-28 08:51 | disposition home or self-care (01) ==
LOC: PREOP 05:36
PROVIDERS: ATTEND Obstetrics & Gynecology
DX: Z01.818 Encounter for other preprocedural examination (principal)

== ENCOUNTER 2021-03-06 07:33 | Day surgery (SDC) | payer OTHER ==
[~2021-03-06] VITALS: Ht 152.4 cm; Wt 61.3 kg
[2021-03-06] VITALS (12 sets, daily range): BP systolic 97–119; BP diastolic 55–76
[~2021-03-06 07:33] MED LIST changes: +birth control
[2021-03-06] MEDS ORDERED: ceFAZolin INJECTION 1,000 MG VIAL IV ONE (08:15)
[2021-03-06] MEDS ORDERED: metroNIDAZOLE 500MG/100ML IVPB 100 ML IV ONE (08:15)
[2021-03-06 08:52] LABS: BASOPHILS # (AUTO) 0.1 10^3/uL (0.0-0.1); BASOPHILS % (AUTO) 1 % (0-10); EOSINOPHILS # (AUTO) 0.1 10^3/uL (0.0-0.3); EOSINOPHILS % (AUTO) 2 % (0-10); HEMATOCRIT 42 % (35-52); HEMOGLOBIN 14.3 g/dL (11.5-16.0); LYMPHOCYTES # (AUTO) 1.8 10^3/uL (1.0-4.0); LYMPHOCYTES % (AUTO) 33 % (12-44); MEAN CORPUSCULAR HEMOGLOBIN 31 pg (25-34); MEAN CORPUSCULAR HGB CONC 34 g/dL (32-36); MEAN CORPUSCULAR VOLUME 92 fL (80-99); MEAN PLATELET VOLUME 10.3 fL (9.0-12.2); MONOCYTES # (AUTO) 0.5 10^3/uL (0.0-1.0); MONOCYTES % (AUTO) 9 % (0-12); NEUTROPHILS % (AUTO) 55 % (42-75); PLATELET COUNT 233 10^3/uL (130-400); WHITE BLOOD COUNT 5.4 10^3/uL (4.3-11.0)
[2021-03-06] MEDS: LACTATED RINGERS 1,000 ML IV PRN ×2 (08:53→10:25)
[2021-03-06] MEDS ORDERED: BUPIVACAINE 0.25% 30 ML (SENSORCAINE) VIAL ONE (08:53)
[2021-03-06] MEDS ORDERED: SEVOFLURANE (ULTANE) 15 ML INHAL SOLN ONE ×2 (09:04→10:22)
[2021-03-06] MEDS ORDERED: ONDANSETRON 4 MG/2 ML (SDV) Z0FRAN ONE (09:04)
[2021-03-06] MEDS ORDERED: fentaNYL INJ 100 MCG/2 ML AMP ONE (09:04)
[2021-03-06] MEDS ORDERED: LIDOCAINE PF 2% 5 ML (XYLOCAINE) VIAL ONE (09:04)
[2021-03-06] MEDS ORDERED: MIDAZOLAM 2 MG/2 ML (VERSED) VIAL ONE (09:04)
[2021-03-06] MEDS ORDERED: proPOfol 200 MG/20 ML (DIPRIVAN) VIAL IV ONE (09:04)
--- NOTE | 2021-03-06 09:21 | Progress Note-Pre Operative ---
Pre-Operative Progress Note H&P Reviewed The H&P was reviewed, patient examined and no changes noted. Date Seen by Provider: Mar 06, 2021 Time Seen by Provider: 09:00 Date H&P Reviewed: Mar 06, 2021 Time H&P Reviewed: 09:05 Pre-Operative Diagnosis: Solid pelvic mass TERRY SAXENA DO Mar 06, 2021 09:21
--- NOTE | 2021-03-06 09:27 | Discharge Inst-Women's Service ---
Discharge Inst-Women's Serv Depart Medication/Instructions New, Converted or Re-Newed RX: Transmitted to Pharmacy Final Diagnosis PO Removal pelvic mass Problems Reviewed?: Yes Consults/Follow Up Additional Follow Up: Yes Orders/Referrals Dr. Clifton or Mandie in 7-10 days Activity Activity: Activity as Tolerated Driving Instructions: No Driving for 1 Week NO SMOKING: NO SMOKING Nothing Inside Vagina: No Douching, No [place], No Tampons Diet Discharge Diet: No Restrictions Symptoms to Report to : Bleeding Excessive, Pain Increased, Fever Over 101 Degrees F, Vaginal Bleeding Increase, Questions/Concerns For Any Problems or Questions: Contact Your Physician Skin/Wound Care Infection Signs and Symptoms: Increased Redness, Foul Odor of Wound, Increased Drainage, Skin Itchy or Has a Rash, Increased Swelling, Temperature Above 101 F Operative Area Clean and Dry: Keep Incision Clean/Dry Stitches/[place]/Dermabond: Dermabond, Care of Stitches Bathing Instructions: TERRY Polk DO Mar 06, 2021 09:27
[2021-03-06] MEDS ORDERED: HYDR-34 PO (09:28)
[2021-03-06] MEDS ORDERED: IBUP-844 PO (09:28)
[2021-03-06] MEDS ORDERED: SMT80CT PO (09:28)
[2021-03-06] MEDS ORDERED: DOCU100C37 PO (09:28)
[2021-03-06] MEDS ORDERED: ZOLPIDEM 5 MG (AMBIEN) TAB PO PRN (09:30)
[2021-03-06] MEDS ORDERED: NALOXONE 0.4 MG/ML 1 ML (NARCAN) VIAL IV PRN (09:30)
[2021-03-06] MEDS ORDERED: ANTACID SUSP 30 ML UDC (MYLANTA) PO PRN (09:30)
[2021-03-06] MEDS ORDERED: IBUPROFEN 600 MG (MOTRIN) TAB PO PRN (09:30)
[2021-03-06] MEDS ORDERED: CHLORASEPTIC LOZENGE MM PRN (09:30)
[2021-03-06] MEDS ORDERED: ONDANSETRON 4 MG/2 ML (SDV) Z0FRAN IV PRN (09:30)
[2021-03-06] MEDS ORDERED: GLYCOPYRROLATE 0.2 MG/ML (ROBINUL) 2 ML VIAL ONE ×3 (09:47→10:51)
[2021-03-06] MEDS ORDERED: HYDROmorphone 2 MG/ML VIAL (DILAUDID) ONE ×2 (09:52→11:13)
[2021-03-06] MEDS ORDERED: ROCURONIUM 50 MG/5 ML (ZEMURON) VIAL IV ONE (10:12)
[2021-03-06] MEDS ORDERED: NEOSTIGMINE 3 MG/3 ML VIAL ONE (10:14)
[2021-03-06] MEDS ORDERED: KETOROLAC 30 MG/ML VIAL ONE (10:17)
[2021-03-06] MEDS: KETOROLAC 30 MG/ML VIAL IVP PRN ×3 (10:30→21:48)
[2021-03-06] MEDS ORDERED: HYDROmorphone 2 MG/ML VIAL (DILAUDID) IV ONE (11:00)
[2021-03-06] MEDS ORDERED: ONDANSETRON 4 MG/2 ML (SDV) Z0FRAN IVP PRN (11:00)
[2021-03-06] MEDS: LACTATED RINGERS 1,000 ML IV SCH ×3 (11:03→21:48)
[2021-03-06] MEDS: HYDROcodone/APAP 7.5 MG/325 MG (LORTAB, LORCET PLUS) TABLET PO PRN ×2 (14:32→18:40)
[2021-03-06] MEDS: SIMETHICONE 80 MG (MYLICON) CHEW PO PRN ×2 (16:29→21:55)
[2021-03-06] MEDS ORDERED: HYDROmorphone 2 MG/ML VIAL (DILAUDID) IV PRN (17:00)
--- NOTE | 2021-03-06 17:34 | OPERATIVE REPORT ---
DATE OF SERVICE: PREOPERATIVE DIAGNOSIS: A 35-year-old female with large solid pelvic mass. POSTOPERATIVE DIAGNOSIS: A 35-year-old female with large solid pelvic mass. PROCEDURE: Laparoscopic removal of ovarian mass converted to minilaparotomy and removal of left ovary and tube. SPECIMEN SENT: Left ovary and tube. SURGEON: Collins Clifton DO MANAGER PROPOSAL: Mandie Martin DNP, who was necessary for manipulation and retraction throughout the procedure. ANESTHESIA: General endotracheal. ESTIMATED BLOOD LOSS: 50 mL. URINE OUTPUT: 150 mL clear at the end of the procedure. FLUIDS: 1100 mL lactated Ringer's solution. FINDINGS: Grossly normal appearing uterus, right fallopian tube and ovary. Left fallopian tube appears grossly normal. Left ovary is enlarged and multicystic and solid with components of care that could be visible through the ovarian capsule suspicious for a mature teratoma. INDICATIONS FOR PROCEDURE: This is a 35-year-old female patient who had sought care in my office after a finding of a large solid pelvic mass suspicious for a dermoid or teratoma on ultrasound and imaging, the patient was having discomfort from this could feel movement from side to side. I had concerns with it twisting on itself that she had been told that a torsion could occur. I discussed with the patient removal of this including the possibility of laparotomy. Risks of procedure were discussed with the patient in detail including risk of bleeding, infection, damage to surrounding structures including, but not limited to bowel, bladder, or kidneys, possible need for operation, postoperative complications that may occur, risk from anesthesia, recovery timeframe and even . Attending discussed with the patient in detail, consent was obtained in the preoperative area, the patient was taken to the operating room. OPERATIVE REPORT IN DETAIL: Once in the operating room, anesthesia was found to be adequate, placed in dorsal lithotomy position, prepped and draped in normal sterile fashion. A timeout was performed. A Carroll catheter was placed using sterile technique. I then introduced a Veress needle subcostally at the midclavicular line approximately 1 fingerbreadth on the left. Veress needle placement is punctured through the skin until intraperitoneal placement was confirmed using saline drop test. An opening pressure of 5 mmHg was noted. I proceeded to max pressure of 15 mmHg, at which point, I made an infraumbilical incision with a knife and directed a da Rosa camera trocar through this incision until intraperitoneal placement was confirmed using the da Rosa laparoscope. There was no evidence of damage from entry site. Upper abdominal anatomy was grossly normal. The Veress was removed at that point. Without placing the patient in steep Trendelenburg, I was able to visualize the ovary. It is occupying greater portion of the pelvic inlet. 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 Therefore, I decided due to the enlargement of this ovary, I will need a laparotomy incision either way. Therefore, I converted the patient to laparotomy at that point, I proceeded with this by removing the laparoscope, leaving the trocar in place and retaining insufflation. I then made a mini lap skin incision through the previously existing Pfannenstiel skin incision using a knife and carried down to underlying fascia using Bovie cautery. Fascial incision extended laterally using Bovie cautery. Superior aspect of fascial incision was then grasped with Hayden clamps, tented up and dissected off the underlying rectus muscles. The inferior aspect of the fascial incision was grasped with Hayden clamps, tented up and dissected off the underlying rectus muscles. Rectus muscles were dissected down the midline using blunt traction, which exposed the peritoneum, which I entered bluntly and extended using blunt traction and the pneumo insufflation was released, at which point I turned off the pneumo insufflation gas. I placed an Bashir ring retractor within the peritoneal incision, which offers excellent lateral sidewall retraction. I identified the ovary and grasped it with the long Allis clamp and elevated up through this incision where I was able to identify the left infundibulopelvic ligament, which I sealed and transected using an Impact LigaSure device. I then removed the left fallopian tube by taking this dissection down the mesosalpinx and the distal ampullary portion of the fallopian tube. Once fallopian tube and the ovary were disconnected, they were sent together as left ovary and fallopian tube. There was no active bleeding noted from any of my dissection planes. The patient was taken out of steep Trendelenburg. I copiously irrigated the pelvis using normal saline. Once again, no active bleeding noted from any of my dissection planes. I removed the Bashir ring retractor and proceeded with closing the peritoneum using 3-0 Vicryl suture in running fashion. The rectus muscle reapproximated using 3-0 Vicryl suture in interrupted fashion. The fascia was reapproximated using 0 Vicryl suture in running fashion and the skin reapproximated using 4-0 Monocryl running subcuticular. Dermabond was applied to the incision. The infraumbilical trocar was closed using 4-0 Monocryl in interrupted subcuticular. Dermabond was placed over that incision as well. Carroll catheter was removed. The patient tolerated the procedure well and sent to recovery in stable condition. Lap and sponge counts were correct at the end of procedure. Instrument counts correct as well. Two grams of Ancef and 500 mg of Flagyl were given preoperatively for infection prophylaxis. Job ID: [id number] DocumentID: [id number] Dictated Date: 03/06/2021 10:46:13 Chemical Sales Representative Date: 03/06/2021 17:33:43 Dictated By: DO BHUMIKA ZAFAR
[2021-03-06] MEDS: DOCUSATE SODIUM 100 MG (COLACE) CAP PO PRN (21:49)
[2021-03-07 01:33] VITALS: BP 97/51
[2021-03-07] MEDS: KETOROLAC 30 MG/ML VIAL IVP PRN ×2 (04:33→09:23)
[2021-03-07] MEDS: HYDROcodone/APAP 7.5 MG/325 MG (LORTAB, LORCET PLUS) TABLET PO PRN (04:36)
[2021-03-07 04:37] VITALS: BP 97/52
--- NOTE | 2021-03-07 08:30 | Anesthesia-General Post-Op ---
General Patient Condition Mental Status/LOC: Same as Preop Cardiovascular: Satisfactory Nausea/Vomiting: Absent Respiratory: Satisfactory Pain: Controlled Complications: Absent Post Op Complications Complications None Follow Up Care/Instructions Patient Instructions None needed. Anesthesia/Patient Condition Patient Condition Patient is doing well, no complaints, stable vital signs, no apparent adverse anesthesia problems. No complications reported per nursing. D/C [place] per [facility] [place]: Yes LUCRECIA BUTCHER CRNA Mar 07, 2021 08:30
[2021-03-07 09:20] VITALS: BP 128/54
[2021-03-07] MEDS: DOCUSATE SODIUM 100 MG (COLACE) CAP PO PRN (09:23)
== END 2021-03-07 09:47 | disposition home or self-care (01) ==
LOC: SDC 07:33 → WS 12:17 → SDC 03-07 09:47
PROVIDERS: ATTEND Obstetrics & Gynecology
DX: D27.1 Benign neoplasm of left ovary (principal); Z79.899 Other long term (current) drug therapy; Z87.891 Personal history of nicotine dependence
CPT/HCPCS: 36415; 84703; 85025; 86850; 86900; 86901; 87081